=== PATIENT | male | born 1950 | race Caucasian/White ===

== ENCOUNTER 2022-07-03 12:36 | Outpatient (CLI) | payer OTHER, SELFPAY | END 2022-07-03 12:37 | disposition home or self-care (01) | LOC: AMB 07-19 14:18 | PROVIDERS: Visit Provider Family Medicine | DX: F29 Unspecified psychosis not due to a substance or known physiological condition (principal) | CPT/HCPCS: A0425; A0429 ==

== ENCOUNTER 2022-07-03 13:05 | Emergency (ER) | payer OTHER, SELFPAY ==
[2022-07-03 13:20] VITALS: BP 169/87; PULSE 90; RESP 18; TEMP 36.9; O2SAT 96; BMI 18.4
[2022-07-03 14:04] LABS: Basophils Absolute Auto 0.07 K/uL (0.00-0.30); Basophils Percent Auto 0.7 % (0.0-3.0); Eosinophils Percent Auto 11.2 % (0.0-7.0); Hematocrit 41.7 % (37.0-53.0); Hemoglobin* 13.7 gm/dL (13.5-17.5); Immature Granulocytes Abs Auto 0.01 K/uL (0.00-0.30); Immature Granulocytes Pct Auto 0.1 %; Lymphocytes Percent Auto 16.7 % (20-44); Mean Corpuscular HGB Conc 33 gm/dL (32-36); Mean Corpuscular Hemoglobin 30 pg (26-34); Mean Corpuscular Volume 92 fL (80-100); Monocytes Percent Auto 10.9 % (0.0-11.0); Neutrophils Percent Auto 60.4 % (42.0-72.0); Platelet Count* 251 K/uL (140-440); RDW Coefficient of Variation % 13.3 % (11.5-15.5); Red Blood Count 4.55 m/uL (4.30-5.90); White Blood Count* 10.58 K/uL (4.50-11.00)
--- NOTE | 2022-07-03 14:08 | ED_ITS ---
HPI - General Adult General Chief complaint: Psychiatric Problem/Disorder Stated complaint: Mental health Time Seen by Provider: 07/03/22 13:34 Source: police Limitations: no limitations History of Present Illness HPI narrative: 71-year-old male brought in by the warehouse specialist, on hold, for concerns of being in phone herbal adult. Patient was living in a camper on somebody else's property and was evicted from that property today. Unclear why the vague ponce occurred. Upon further inspection per the police, patient was living with minimal heat. He complains that his fingers have all been huff bitten but are all now doing better. Patient had been in a different living situation prior to April of 2022, according to police patient has not showered since April of 2022 or done any laundry. Patient tells me today that he is concerned that he got evicted and he does not know what he is going to do next. He is however optimistic about the future, has a very happy disposition. He denies any physical concerns today. He denies any mental health concerns today. He does not take any medications. He denies any drug use. Patient denies any thoughts of hurting himself or other people. He denies any self-injurious behavior in the past. Related Data Home Medications Medication Instructions Recorded Confirmed No Known Home Medications 07/03/22 07/03/22 Allergies Allergy/AdvReac Type Severity Reaction Status Date / Time No Known Drug Allergies Allergy Verified 07/03/22 13:46 Review of Systems Status of ROS: Reports: 10 or more systems reviewed and unremarkable except as noted in History and below [facility] Medical History No significant past medical history No significant past medical history Surgical History History of appendectomy Social History Smoking Status: Never smoker Do you use any of these nicotine containing products: None Second hand tobacco smoke exposure: No How often do you have a drink containing alcohol: never How often do you have six or more drinks on one occasion: Never AUDIT-C Alcohol total score: 0 Non-prescribed substance use: denies use service: No Exam Narrative: Exam Narrative: Thin patient in no acute distress. Alert and oriented x3. He does have a very unpleasant scent. He is disheveled. He does have tangential thinking but he is easily redirected. His speech is pressured and difficult to interrupt. He does have disorganized thinking as well, jumping frequently between topics. HEENT: Normocephalic atraumatic. Pupils are equally round reactive to light. Extraocular muscles are intact. Conjunctivae are moist without any icterus noted. Moist mucous membranes. Very poor dentition with multiple missing teeth. Posterior pharynx is normal. Neck is soft without any lymphadenopathy or thyromegaly. No masses are appreciated. Cardiovascular: Heart is regular rate and rhythm S1 and S2 are present without any murmurs. Lungs: Clear to auscultation bilaterally no wheezes rhonchi or rales are appreciated. Patient takes deep breaths without any discomfort. Abdomen: Soft and nontender nondistended with normal bowel sounds. No guarding or rebound. Extremities: Bilateral lower extremities are without edema. Normal DP and PT pulses. Skin: Well perfused without any obvious rashes. Skin is very dirty. Patient has a significant amount of dirt underneath his fingernails as well. Const: Vital Signs, click to edit/add: Vital Signs - 24 hr 07/03/22 13:20 Temperature 98.4 F Pulse Rate [Right Pulse Oximeter] 90 Respiratory Rate 18 Blood Pressure [Ri ght Upper Arm] 169/87 H Pulse Oximetry 96 Oxygen Delivery Me thod Room Air Course Course Hospital Course: Labs were drawn. We did proceed with a DEC assessment as well as a social sciences chair consult. Lab work was unremarkable. Urine drug screen was positive for methamphetamine. Did speak to the patient and ask if he does use methamphetamine and he tells me that he uses adrenaline when he needs to feel better. Patient is very unclear as to when the last time he used methamphetamines was. Vital Signs Vital signs: Initial Vital Signs Temperature 98.4 F 07/03/22 13:20 Temperature Source Temporal Artery Scan 07/03/22 13:20 Pulse Rate 90 07/03/22 13:20 Pulse Rhythm 07/03/22 13:20 Pulse Strength 3+ Normal 07/03/22 13:20 Respiratory Rate 18 07/03/22 13:20 Blood Pressure 169/87 H 07/03/22 13:20 Blood Pressure Mean 114 07/03/22 13:20 Blood Pressure Position Sitting 07/03/22 13:20 Pulse Oximetry 96 07/03/22 13:20 Oxygen Delivery Method 07/03/22 13:20 Vital Signs Temperature 98.4 F 07/03/22 13:20 Pulse Rate 90 07/03/22 13:20 Respiratory Rate 18 07/03/22 13:20 Blood Pressure 169/87 H 07/03/22 13:20 Pulse Oximetry 96 07/03/22 13:20 Oxygen Delivery Method 07/03/22 13:20 Temperature 98.4 F 07/03/22 13:20 Pulse Rate 90 07/03/22 13:20 Respiratory Rate 18 07/03/22 13:20 Blood Pressure 169/87 H 07/03/22 13:20 Pulse Oximetry 96 07/03/22 13:20 Oxygen Delivery Method 07/03/22 13:20 Medical Decision Making MDM Narrative Medical decision making narrative: 71-year-old male presenting via at the [facility] secondary to homelessness, disorganized thinking and concerns about his welfare. At this time I do not have any medical reason to admit the patient to the hospital. I did consult social Work with able to contact the patient's friend who will be taking him home today so he has a place to stay. [facility] crisis Services has been notified and will follow-up with him tomorrow. Lab Data Lab results reviewed: Yes I reviewed the patient's lab results Labs: Lab Results 07/03/22 07/03/22 07/03/22 Range/Units 13:45 14:00 14:00 WBC 10.58 (4.50-11.00) K/uL RBC 4.55 (4.30-5.90) m/uL Hgb 13.7 (13.5-17.5) gm/dL Hct 41.7 (37.0-53.0) % MCV 92 (80-100) fL MCH 30 (26-34) pg MCHC 33 (32-36) gm/dL RDW Coeff of Marquis 13.3 (11.5-15.5) % Plt Count 251 (140-440) K/uL Neut % (Auto) 60.4 (42.0-72.0) % Lymph % (Auto) 16.7 L (20-44) % Tift % (Auto) 10.9 (0.0-11.0) % Eos % (Auto) 11.2 H (0.0-7.0) % Baso % (Auto) 0.7 (0.0-3.0) % Neut # (Auto) 6.40 (1.7-7.0) K/uL Lymph # (Auto) 1.80 (0.90-2.90) K/uL Tift # (Auto) 1.20 H (0.00-0.90) K/UL Eos # (Auto) 1.20 H (0.00-0.50) K/uL Baso # (Auto) 0.07 (0.00-0.30) K/uL Sodium 142 (135-149) mmol/L Potassium 4.4 (3.6-5.1) mmol/L Chloride 107 (96-114) mmol/L Carbon Dioxide 28 (20-32) mmol/L BUN 23 (7-30) mg/dL Creatinine 0.8 (0.5-1.5) mg/dL Estimated Creat Clear 57.25 Estimated GFR 96 ml/min Glucose 75 (60-115) mg/dL Calcium 9.2 (8.4-10.6) mg/dL Total Bilirubin 0.5 (0.1-1.5) mg/dL Direct Bilirubin 0.2 (0.0-0.5) mg/dL AST 29 (12-35) U/L ALT 32 (4-50) U/L Alkaline Phosphatase 95 (40-150) U/L Total Protein 7.8 (6.0-8.3) g/dL Albumin 4.5 (3.3-5.0) g/dL Urine Color (Yellow) Urine Appearance (Clear) Urine pH (5.0-8.5) Ur Specific Lillian (1.000-1.030) Urine Protein (Negative) Urine Glucose (UA) (Negative) Urine Ketones (Negative) Urine Blood (Negative) Urine Nitrite (Negative) Urine Bilirubin (Negative) Urine Urobilinogen (0.2-1.0) Ur Leukocyte Esterase (Negative) Urine RBC (0-2) Urine WBC (0-5) Ur Squamous Epith Cells (None-Few) Urine Bacteria (None) Salicylates < 1.0 L (1.0-10) mg/dL Urine Opiates Screen Negative (Negative) Ur Oxycodone Screen Negative (Negative) Urine Methadone Screen Negative (Negative) Ur Propoxyphene Screen Negative (Negative) Acetaminophen < 10.0 L (10.0-30.0) ug/mL Ur Barbiturates Screen Negative (Negative) U Tricyclic Antidepress Negative (Negative) Ur Phencyclidine Scrn Negative (Negative) Ur Amphetamines Screen POSITIVE A* (Negative) U Methamphetamines Scrn POSITIVE A* (Negative) U Benzodiazepines Scrn Negative (Negative) Urine Cocaine Screen Negative (Negative) U Marijuana (THC) Screen Negative (Negative) Ur Drug Screen Comment See Note Ethyl Alcohol < 0.01 L (0.01-0.03) % 07/03/22 Range/Units 14:30 WBC (4.50-11.00) K/uL RBC (4.30-5.90) m/uL Hgb (13.5-17.5) gm/dL Hct (37.0-53.0) % MCV (80-100) fL MCH (26-34) pg MCHC (32-36) gm/dL RDW Coeff of Marquis (11.5-15.5) % Plt Count (140-440) K/uL Neut % (Auto) (42.0-72.0) % Lymph % (Auto) (20-44) % Tift % (Auto) (0.0-11.0) % Eos % (Auto) (0.0-7.0) % Baso % (Auto) (0.0-3.0) % Neut # (Auto) (1.7-7.0) K/uL Lymph # (Auto) (0.90-2.90) K/uL Tift # (Auto) (0.00-0.90) K/UL Eos # (Auto) (0.00-0.50) K/uL Baso # (Auto) (0.00-0.30) K/uL Sodium (135-149) mmol/L Potassium (3.6-5.1) mmol/L Chloride (96-114) mmol/L Carbon Dioxide (20-32) mmol/L BUN (7-30) mg/dL Creatinine (0.5-1.5) mg/dL Estimated Creat Clear Estimated GFR ml/min Glucose (60-115) mg/dL Calcium (8.4-10.6) mg/dL Total Bilirubin (0.1-1.5) mg/dL Direct Bilirubin (0.0-0.5) mg/dL AST (12-35) U/L ALT (4-50) U/L Alkaline Phosphatase (40-150) U/L Total Protein (6.0-8.3) g/dL Albumin (3.3-5.0) g/dL Urine Color Yellow (Yellow) Urine Appearance Slightly Cloudy A (Clear) Urine pH 7.5 (5.0-8.5) Ur Specific Lillian 1.020 (1.000-1.030) Urine Protein Negative (Negative) Urine Glucose (UA) Negative (Negative) Urine Ketones Negative (Negative) Urine Blood Negative (Negative) Urine Nitrite Negative (Negative) Urine Bilirubin Negative (Negative) Urine Urobilinogen 0.2 (0.2-1.0) Ur Leukocyte Esterase Negative (Negative) Urine RBC 0-2 (0-2) Urine WBC 0-2 (0-5) Ur Squamous Epith Cells None (None-Few) Urine Bacteria None (None) Salicylates (1.0-10) mg/dL Urine Opiates Screen (Negative) Ur Oxycodone Screen (Negative) Urine Methadone Screen (Negative) Ur Propoxyphene Screen (Negative) Acetaminophen (10.0-30.0) ug/mL Ur Barbiturates Screen (Negative) U Tricyclic Antidepress (Negative) Ur Phencyclidine Scrn (Negative) Ur Amphetamines Screen (Negative) U Methamphetamines Scrn (Negative) U Benzodiazepines Scrn (Negative) Urine Cocaine Screen (Negative) U Marijuana (THC) Screen (Negative) Ur Drug Screen Comment Ethyl Alcohol (0.01-0.03) % Discharge Plan Discharge Clinical Impression: Disorganized thinking, Homelessness, Methamphetamine use Patient Disposition: Home w/ Parent or Adult Condition: Stable Additional Instructions: [facility] crisis services will follow-up with you tomorrow to work on your housing situation. Prescriptions: No Action No Known Home Medications Follow Up/Referrals: Provider,Not a Local [Primary Care Provider] - Stand Alone Forms: [employer] Info Instructions
[2022-07-03 14:09] LABS: Slide Review Reflex No
[2022-07-03 14:19] LABS: Albumin* 4.5 g/dL (3.3-5.0)
[2022-07-03 14:20] LABS: Chloride* 107 mmol/L (96-114); Sodium* 142 mmol/L (135-149)
[2022-07-03 14:21] LABS: Potassium* 4.4 mmol/L (3.6-5.1)
[2022-07-03 14:22] LABS: Bilirubin Direct* 0.2 mg/dL (0.0-0.5); Bilirubin Total* 0.5 mg/dL (0.1-1.5); Carbon Dioxide* 28 mmol/L (20-32); Creatinine* 0.8 mg/dL (0.5-1.5); Est. Creatinine Clearance* 57.25; Estimated Glomerular Filt Rate 96 ml/min
[2022-07-03 14:23] LABS: Alanine Aminotransferase* 32 U/L (4-50); Alkaline Phosphatase* 95 U/L (40-150); Aspartate Amino Transferase* 29 U/L (12-35); Blood Urea Nitrogen* 23 mg/dL (7-30); Calcium* 9.2 mg/dL (8.4-10.6); Glucose* 75 mg/dL (60-115); Total Protein* 7.8 g/dL (6.0-8.3)
[2022-07-03 14:26] LABS: Acetaminophen* < 10.0 ug/mL (10.0-30.0); Ethanol* < 0.01 % (0.01-0.03); Salicylate* < 1.0 mg/dL (1.0-10)
[2022-07-03 14:46] LABS: Appearance Urine Slightly Cloudy (Clear); Bilirubin Urine Negative (Negative); Blood Urine Negative (Negative); Color Urine Yellow (Yellow); Glucose Urine Negative (Negative); Ketones Urine Negative (Negative); Leukocyte Esterase Urine Negative (Negative); Nitrite Urine Negative (Negative); Protein Urine Negative (Negative); Urobilinogen Urine 0.2 (0.2-1.0); pH Urine 7.5 (5.0-8.5)
[2022-07-03 14:55] LABS: RBC Urine 0-2 (0-2); WBC Urine 0-2 (0-5)
[2022-07-03 15:48] LABS: Barbiturate Screen Urine Negative (Negative); Benzodiazepines Screen Urine Negative (Negative); Cannabinoid Screen Urine Negative (Negative); Cocaine Screen Urine Negative (Negative); Methadone Screen Urine Negative (Negative); Opiate Screen Urine Negative (Negative); Oxycodone Screen Urine Negative (Negative); Phencyclidine Screen Urine Negative (Negative); Tricyclic Antidepressant Urine Negative (Negative)
[2022-07-03 15:58] LABS: Amphetamine Screen Urine POSITIVE (Negative); Methamphetamines Screen Urine POSITIVE (Negative)
--- NOTE | 2022-07-03 16:04 | ED.NURSE ---
Pt ate lunch and wants to sleep.
--- NOTE | 2022-07-03 16:05 | ED.NURSE ---
[facility] Practitioner called this nurse back and will call Dr. Guzman to talk about patient plan of care.
--- NOTE | 2022-07-03 16:06 | ED.NURSE ---
notified of positive urine tox screen. Positive for meth and amphetamines.
--- NOTE | 2022-07-03 16:26 | PC.SOCIAL ---
Discharge planning: Pt was brought to the ED by the [facility], Koby ([phone]). Called and spoke with Koby who states pt was evicted from his camper that was parked on someone's property without permission. Koby stated he has reached a friend of pt's, Nadir Adrian ([phone]) who told Koby he is able to pick pt up from the hospital and that pt can stay with him until a permanent housing situation is located. Koby states he will be following up with pt to assist in finding him permanent housing as part of the [facility] Crisis unit. RN spoke with pt who states he agrees with plan for Nadir to pick him up at discharge. Called Nadir and confirmed this plan. Nadir states he will wait for call from RN that pt is ready for discharge and then come and pick him up. aware and agrees with this plan.
--- NOTE | 2022-07-03 16:26 | ED.NURSE ---
Talked with patient and he is okay with Nadir Campbell coming to pick him up from ER.
--- NOTE | 2022-07-03 16:32 | ED.NURSE ---
[facility] consult cancelled per Dr. Guzman
[2022-07-03 16:47] LABS: PCR FLU A Negative PCR FLU A (Negative); PCR FLU B Negative PCR FLU B (Negative)
--- NOTE | 2022-07-03 17:34 | ED.NURSE ---
Per social media strategist [facility] will call pt's cell phone and get him set up with Crisis housing. pT is aware of plan of care and that they will be calling.
[2022-07-03 19:00] LABS: SARS PCR* Negative SARS-CoV-2 (Negative)
== END 2022-07-03 17:47 | disposition home or self-care (01) ==
PROVIDERS: Emergency Provider Family Medicine
DX: F15.920 Other stimulant use, unspecified with intoxication, uncomplicated (principal); Z59.00 Homelessness unspecified; R82.90 Unspecified abnormal findings in urine
CPT/HCPCS: 36415; 80048; 80076; 80143; 80179; 80306; 81001; 82077; 85025; 87086; 87631; 99283; 99284

== ENCOUNTER 2025-01-23 11:00 | Outpatient (RCR) | payer BC, SELFPAY ==
--- NOTE | 2024-10-26 10:48 | URNOTE ---
Request received for authorization for Leuprolide (Eligard) ([id number]). Prior authorization is not required per [facility] plan active, Ref#[id number], date range: 10/30/2024 to 10/29/2025, services are based on medical necessity and guidelines.
--- NOTE | 2024-10-27 09:14 | ONC.NURNOTE ---
Diagnosis: prostate cancer
[2024-10-31 11:03] VITALS: BP 168/74; PULSE 97; RESP 18; TEMP 36.8; O2SAT 94
--- NOTE | 2024-10-31 11:10 | ONC.NURNOTE ---
confirmed with [facility] that no lab work is needed before eligard injection today.
[2024-10-31] MEDS: LEUPROLIDE ACETATE (ELIGARD) 22.5 MG INJ SUBCUT (11:36)
[2025-01-23 11:20] VITALS: BP 172/78; PULSE 106; RESP 14; TEMP 37.2; O2SAT 95
[2025-01-23] MEDS: LEUPROLIDE ACETATE (ELIGARD) 22.5 MG INJ SUBCUT (12:02)
--- NOTE | 2025-04-17 12:16 | ONC.NURNOTE ---
Received orders for pt to get an Eligard injection on 04/17/2025 (today). Called pt on 04/09/25 and asked him to call back to schedule. Called pt again today and LM. Contacted Dr. Scott's office with this update.
--- NOTE | 2025-04-18 14:44 | ONC.NURNOTE ---
Pt called yesterday stating he is done with Leuprolide. Turbine Technician called radiation to confirm this. No more leuprolide needed.
== END 2025-04-29 23:59 | disposition home or self-care (01) ==
LOC: CCIC 11:00
PROVIDERS: PCP Internal Medicine; Referring Provider Internal Medicine; Visit Provider Clinical Nurse Specialist
DX: C61 Malignant neoplasm of prostate (principal); Z79.818 Long term (current) use of other agents affecting estrogen receptors and estrogen levels
CPT/HCPCS: 96402; 99199; J9217

== ENCOUNTER 2025-03-28 15:01 | Outpatient (CLI) | payer BC, SELFPAY ==
[2025-03-28 16:17] LABS: PSA Diagnostic* < 0.06 ng/mL (0.10-4.00)
[2025-03-30 19:33] LABS: Testosterone, Adult Male 3 ng/dL (300-720); Testosterone, Free Calculation <1 pg/mL (47-244); Testosterone, Percentage Free 0.6 % (1.6-2.9)
== END 2025-03-28 15:02 | disposition home or self-care (01) ==
PROVIDERS: PCP Internal Medicine; Visit Provider Radiology Radiation Oncology
DX: C61 Malignant neoplasm of prostate (principal)
CPT/HCPCS: 36415; 84153; 84270; 84402; 84403